=== PATIENT | female | born 1945 | race Caucasian/White ===

== ENCOUNTER 2018-03-21 13:53 | Emergency (ER) | payer MEDICARE, OTHER ==
[~2018-03-21] VITALS: Ht 154.9 cm; Wt 81.8 kg
[~2018-03-21 13:53] MED LIST: DEXL60CA3 PO; DULO30CA51 PO; HYDR25TA4 PO; MECL25TA3 PO; PROP40TA72 PO
[2018-03-21] MEDS ORDERED: aspirin 81mg tab.chew PO ONE (14:00)
[2018-03-21] MEDS ORDERED: famotidine 20mg tablet PO ONE (14:10)
[2018-03-21] MEDS ORDERED: LORazepam 2 mg/ml vial IV ONE (14:10)
[2018-03-21] MEDS ORDERED: sucralfate 1 gm tablet PO ONE (14:10)
[2018-03-21] MEDS ORDERED: mag hydrox/Alum hydrox/simeth 30ml oral suspension PO ONE (14:10)
[2018-03-21] MEDS ORDERED: LIDOcaine Viscous 15ml cup PO ONE (14:10)
[2018-03-21 14:21] LABS: BASOPHILS % (AUTO) 0.4 % (0-1); EOSINOPHILS # (AUTO) 0.1 X10'3 (0-0.9); EOSINOPHILS % (AUTO) 1.7 % (0-6); HEMATOCRIT 47.6 % (35.0-45.0); HEMOGLOBIN 16.3 g/dl (12.0-16.0); LYMPHOCYTES # (AUTO) 1.8 X10'3 (1.1-4.8); LYMPHOCYTES % (AUTO) 25.3 % (21-51); MEAN CORPUSCULAR HEMOGLOBIN 30.7 PG (27.0-31.0); MEAN CORPUSCULAR HGB CONC 34.3 % (33.0-36.5); MEAN CORPUSCULAR VOLUME 89.6 FL (78-98); MONOCYTES # (AUTO) 0.6 X10'3 (0-0.9); MONOCYTES % (AUTO) 9.2 % (2-12); NEUTROPHILS # (AUTO) 4.4 X10'3 (1.8-7.7); NEUTROPHILS % (AUTO) 63.4 % (42-75); PLATELET COUNT 379 X10'3 (140-440); RED BLOOD COUNT 5.31 X10'6 (4.20-5.60); RED CELL DISTRIBUTION WIDTH 13.7 % (11.5-14.5)
[2018-03-21 14:30] LABS: PARTIAL THROMBOPLASTIN TIME 28 SECONDS (22-32); PROTHROMBIN TIME 10.4 SECONDS (9.0-12.0)
[2018-03-21 14:34] LABS: ALANINE AMINOTRANSFERASE 59 U/L (12-78); ALBUMIN 3.9 G/DL (3.4-5.0); ALBUMIN/GLOBULIN RATIO 0.9 (1.1-1.5); ALKALINE PHOSPHATASE 211 IU/L (46-116); ANION GAP 12 (8-16); ASPARTATE AMINO TRANSFERASE 42 U/L (10-37); BILIRUBIN,TOTAL 0.6 MG/DL (0.1-1.0); BLOOD UREA NITROGEN 21 MG/DL (7-18); BUN/CREATININE RATIO 18.9 (6.6-38.0); CHLORIDE 100 MMOL/L (99-107); CREATININE 1.11 MG/DL (0.40-0.90); GLUCOSE 160 MG/DL (70-104); POTASSIUM 3.5 MMOL/L (3.5-5.1); SODIUM 139 MMOL/L (135-145); TOTAL CARBON DIOXIDE 26.7 MMOL/L (24-32); TOTAL PROTEIN 8.2 G/DL (6.4-8.2); eGFR 48 ML/MIN
[2018-03-21 15:31] VITALS: BP 142/86
== END 2018-03-21 15:30 | disposition home or self-care (01) ==
LOC: ER 13:54
DX: K44.9 Diaphragmatic hernia without obstruction or gangrene (principal); K21.9 Gastro-esophageal reflux disease without esophagitis; R07.89 Other chest pain; I10 Essential (primary) hypertension; Z90.49 Acquired absence of other specified parts of digestive tract; Z87.891 Personal history of nicotine dependence; Z88.5 Allergy status to narcotic agent
CPT/HCPCS: 36415; 71045; 80053; 84484; 85025; 85610; 85730; 93005; 96374; 99285; J2060; J7030

== ENCOUNTER 2018-10-02 16:02 | Emergency (ER) | payer MEDICARE, OTHER ==
[~2018-10-02] VITALS: Ht 154.9 cm; Wt 80.0 kg
[2018-10-02 16:03] VITALS: BP 170/82
[2018-10-02] MEDS ORDERED: ibuprofen tablet 400 MG TABLET PO ONE (17:15)
[2018-10-02] MEDS ORDERED: ibuprofen 200mg tablet PO ONE (17:20)
[2018-10-02] MEDS ORDERED: SENN-161 PO (17:58)
[2018-10-02] MEDS ORDERED: HYDR-4383 PO (17:58)
== END 2018-10-02 18:17 | disposition home or self-care (01) ==
LOC: ER 16:02
DX: M25.561 Pain in right knee (principal); I10 Essential (primary) hypertension; K21.9 Gastro-esophageal reflux disease without esophagitis; Z90.49 Acquired absence of other specified parts of digestive tract; Z88.5 Allergy status to narcotic agent; Z79.899 Other long term (current) drug therapy; Z60.2 Problems related to living alone; W18.39XA Other fall on same level, initial encounter; Y93.01 Activity, walking, marching and hiking; Y92.89 Other specified places as the place of occurrence of the external cause; Y99.8 Other external cause status
CPT/HCPCS: 73564; 99283